=== PATIENT | male | born 2000 | race African-American/Black ===

== ENCOUNTER 2021-02-08 17:35 | Emergency (ER) | payer OTHER ==
--- OUTSIDE RECORDS SUMMARY | 2021-02-08 17:38 | XMS REPORT | Continuity of Care Document ---
:2000 Author Organization [facility] t Address [address] [place] [address] Care Team Providers Name Role Phone Jose Manuel Merlos MD Attending Clinician Problems This patient has no known problems. Allergies, Adverse Reactions, Alerts This patient has no known allergies or adverse reactions. Medications This patient has no known medications. Procedures This patient has no known procedures. Encounters Start End Encounter Admission Attending Care Care Encounter Source Date/Time Date/Time Type Type Clinicians Facility Department ID 2020-11-07 2020-11-07 Office CAM Merlos [id number] 08:23:05 08:53:05 Visit [facility] [id number] Jose Manuel Perkins [id number] Anna [id number] nal 044 Office [address] Results This patient has no known results.
[2021-02-08 18:33] LABS: Urine Blood Negative (Negative); Urine Glucose Negative (Negative); Urine Protein Negative (Negative)
[2021-02-08 19:47] LABS: SARS-COV-2 RT PCR NEGATIVE (NEGATIVE)
--- NOTE | 2021-02-08 20:03 | EDPHYS ---
Physician Documentation [facility] Name: Levon Bee Age: 20 yrs Sex: Male : 2000 Arrival Date: 02/08/2021 Time: 17:41 Bed 15 Private MD: LASHELL Physician Wilver Taylor HPI: 02/08 18:13 This 20 yrs old Black Male presents to ER via Ambulatory with complaints of Cough, Sore jmm Throat. 18:13 The patient or guardian reports cough, sore throat. Onset: The symptoms/episode jmm began/occurred gradually, today. Modifying factors: The symptoms are alleviated by nothing, the symptoms are aggravated by nothing. Associated signs and symptoms: Pertinent positives: fever, sore throat. Historical: - Allergies: 18:11 No Known Allergies; ca1 - Home Meds: 18:11 None [Active]; ca1 - PMHx: 18:11 None; ca1 - PSHx: 18:11 None; ca1 - Immunization history:: Flu vaccine is not up to date. - Social history:: Smoking status: Patient denies any tobacco usage or history of. ROS: 18:13 Constitutional: Positive for fever. jmm 18:13 Respiratory: Positive for cough. 18:13 All other systems are negative. Exam: 18:13 Constitutional: This is a well developed, well nourished patient who is awake, alert, jmm and in no acute distress. Head/Face: atraumatic. Eyes: EOMI, no conjunctival erythema appreciated 18:13 Neck: Trachea midline, Supple Chest/axilla: Normal chest wall appearance and motion. Cardiovascular: Regular rate and rhythm. No edema appreciated Respiratory: Normal respirations, no respiratory distress appreciated Abdomen/GI: Non distended, soft Back: Normal ROM Skin: General appearance color normal MS/ Extremity: Moves all extremities, no obvious deformities appreciated, no edema noted to the lower extremities Neuro: Awake and alert, normal gait Psych: Behavior is normal, Mood is normal, Patient is cooperative and pleasant 18:13 ENT: Posterior pharynx: Airway: normal, erythema, that is mild, exudate, that is mild. Vital Signs: 18:09 BP 135 / 68; Pulse 98; Resp 16 S; Temp 99(TE); Pulse Ox 99% on R/A; Weight 87.09 kg ca1 (R); Height 5 ft. 11 in. (180.34 cm) (R); 20:25 BP 136 / 82; Pulse 103; Resp 16 S; Temp 100.6(O); Pulse Ox 95% on R/A; bb 18:09 Body Mass Index 26.78 (87.09 kg, 180.34 cm) ca1 MDM: 19:01 Patient medically screened. [facility] 19:59 Data reviewed: vital signs, nurses notes. Counseling: I had a detailed discussion with alfie the patient and/or guardian regarding: the historical points, exam findings, and any diagnostic results supporting the discharge/admit diagnosis, lab results, the need for outpatient follow up. ED course: Patient is alert and non toxic in appearance in the ED. No signs of resp distress. patient is advised to follow up with pcp. Patient understood and agrees with the plan of care. . 02/08 18:13 Order name: Strep; Complete Time: 18:59 ca1 02/08 18:33 Order name: Urine Dipstick-Ancillary; Complete Time: 18:51 [facility] 02/08 18:56 Order name: Throat Culture [facility] 02/08 19:47 Order name: COVID-19/FLU A+B; Complete Time: 19:54 EDID Administered Medications: 20:20 Drug: Motrin 400 mg Route: PO; bb 20:21 Follow up: Response: Medication administered at discharge. jason Disposition: 02/09 07:13 Co-signature as Attending Physician, Wilver Taylor MD I agree with the assessment and [facility] plan of care. Disposition: 02/08/21 20:02 Discharged to Home. Impression: Acute pharyngitis. - Condition is Stable. - Discharge Instructions: Pharyngitis. - Prescriptions for Augmentin 875- 125 mg Oral Tablet - take 1 tablet by ORAL route every 12 hours for 10 days; 20 tablet. - Medication Reconciliation Form, Thank You Letter, Antibiotic Education, Prescription Opioid Use form. - Follow up: Private Physician; When: 2 - 3 days; Reason: Recheck today's complaints, Continuance of care, Re-evaluation by your physician. Signatures: Dispatcher [employer] Wilver Mcgarry MD MD cha Mickail, Joel, PA PA jmm Ballard, Brenda RN RN bb Elli Montano RN RN ca1 Corrections: (The following items were deleted from the chart) 02/08 19:01 18:13 CORONAVIRUS+MR.LAB.BRZ ordered. EDMS EDMS 19:02 18:13 Influenza Screen (A \T\ B)+BA.LAB.BRZ ordered. EDID EDMS 20:27 20:02 02/08/2021 20:02 Discharged to Home. Impression: Acute pharyngitis. Condition is bb Stable. Forms are Medication Reconciliation Form, Thank You Letter, Antibiotic Education, Prescription Opioid Use. Follow up: Private Physician; When: 2 - 3 days; Reason: Recheck today's complaints, Continuance of care, Re-evaluation by your physician. jmm
--- NOTE | 2021-02-08 20:03 | ER ---
Nurse's Notes [facility] Name: Levon Bee Age: 20 yrs Sex: Male : 2000 Arrival Date: 02/08/2021 Time: 17:41 Bed 15 Private MD: Diagnosis: Acute pharyngitis Presentation: 02/08 18:09 Chief complaint: Patient states: body aching, feels hot, sore throat, cough, lower back ca1 pain started today. Coronavirus screen: Client denies travel out of the [place] in the last 14 days. chills, cough unrelated to allergies, fatigue, muscle pain, sore throat, Client presents with at least one sign or symptom that may indicate coronavirus-19. Standard/surgical mask placed on the client. Provider contacted for isolation considerations. Ebola Screen: Patient negative for fever greater than or equal to 101.5 degrees Fahrenheit, and additional compatible Ebola Virus Disease symptoms Patient denies exposure to infectious person. Patient denies travel to an Ebola-affected area in the 21 days before illness onset. No symptoms or risks identified at this time. Initial Sepsis Screen: Does the patient meet any 2 criteria? No. Patient's initial sepsis screen is negative. Does the patient have a suspected source of infection? No. Patient's initial sepsis screen is negative. Risk Assessment: Do you want to hurt yourself or someone else? Patient reports no desire to harm self or others. Onset of symptoms was February 08, 2021. 18:09 Method Of Arrival: Ambulatory ca1 18:09 Acuity: ARSLAN 4 ca1 Historical: - Allergies: 18:11 No Known Allergies; ca1 - Home Meds: 18:11 None [Active]; ca1 - PMHx: 18:11 None; ca1 - PSHx: 18:11 None; ca1 - Immunization history:: Flu vaccine is not up to date. - Social history:: Smoking status: Patient denies any tobacco usage or history of. Screenin:10 Abuse screen: Denies threats or abuse. Nutritional screening: No deficits noted. fu Tuberculosis screening: No symptoms or risk factors identified. Fall Risk None identified. Assessment: 19:55 General: Appears in no apparent distress. Behavior is calm, cooperative, appropriate fu for age, Denies fever, feeling ill, fatigue, chills. Pain: Complains of pain in throat Pain does not radiate. Pain currently is 5 out of 10 on a pain scale. Pain began today Aggravated by swallowing. Neuro: Level of Consciousness is awake, alert, obeys commands, Oriented to person, place, time, situation, Electronics Maintenance Technician are equal bilaterally Moves all extremities. Gait is steady. Respiratory: Airway is patent Respiratory effort is even, unlabored, Breath sounds are clear bilaterally. EENT: Throat is pink. Derm: No signs and/or symptoms reported regarding the dermatologic system. Musculoskeletal: No signs and/or symptoms reported regarding the musculoskeletal system. 20:26 Reassessment: Patient is alert, oriented x 3, equal unlabored respirations, skin bb warm/dry/pink. pt verbalized understanding of and agrees to plan of care discharge instructions given pt ambulated with steady gait to exit. Vital Signs: 18:09 BP 135 / 68; Pulse 98; Resp 16 S; Temp 99(TE); Pulse Ox 99% on R/A; Weight 87.09 kg ca1 (R); Height 5 ft. 11 in. (180.34 cm) (R); 20:25 BP 136 / 82; Pulse 103; Resp 16 S; Temp 100.6(O); Pulse Ox 95% on R/A; bb 18:09 Body Mass Index 26.78 (87.09 kg, 180.34 cm) ca1 ED Course: 17:41 Patient arrived in ED. ds1 18:04 Joshua Bhatt PA is PHCP. [facility] 18:05 Wilver Taylor MD is Attending Physician. [facility] 18:11 Triage completed. ca1 18:11 Arm band placed on right wrist. ca1 19:14 Fabián Chau, ELICEO is Primary Nurse. fu 20:27 Patient has correct armband on for positive identification. bb 20:27 No provider procedures requiring assistance completed. Patient did not have IV access bb during this emergency room visit. Administered Medications: 20:20 Drug: Motrin 400 mg Route: PO; bb 20:21 Follow up: Response: Medication administered at discharge. bb Outcome: 20:02 Discharge ordered by . m 20:27 Discharged to home bb 20:27 Condition: stable 20:27 Discharge instructions given to patient, Instructed on discharge instructions, follow up and referral plans. medication usage, Demonstrated understanding of instructions, follow-up care, medications, Prescriptions given X 1. 20:27 Patient left the ED. bb Signatures: Joshua Bhatt PA PA jmm Sanford, Demi ds1 Laura Shafer RN RN bb Umadhay, Felix, RN RN fu Acob, Cheryl, RN RN ca1 Corrections: (The following items were deleted from the chart) 18:13 18:09 Chief complaint: Patient states: body aching, feels hot, sore throat, cough. ca1 ca1 18:17 18:09 Chief complaint: Patient states: body aching, feels hot, sore throat, cough ca1 started today ca1
[2021-02-08] MEDS ORDERED: IBUPROFEN 400 MG TAB ONE (20:39)
[2021-02-09 02:56] VITALS: BP 136/82; TEMP 100.6; O2SAT 95
== END 2021-02-08 20:27 | disposition home or self-care (01) ==
LOC: ER 17:35
DX: J02.9 Acute pharyngitis, unspecified (principal); Z20.822 Contact with and (suspected) exposure to COVID-19
CPT/HCPCS: 87070; 87081; 81003; 0240U; 99283